=== PATIENT | male | born 1960 | race Caucasian/White ===

== ENCOUNTER → 2021-05-09 | Outpatient (CLI) | payer BC ==
--- NOTE | 2021-05-09 20:04 | CT ---
EXAMINATION TYPE: CT urogram wo/w con DATE OF EXAM: 05/09/2021 COMPARISON: None HISTORY: hematuria CT DLP: 1259.5 mGycm, Automated Exposure Control for Dose Reduction was Utilized. CONTRAST: CT scan of the abdomen and pelvis is performed with oral and without and with IV Contrast, patient in jected with 100 mL of Isovue 300. FINDINGS: Urinary bladder shows on postcontrast images and abnormal soft tissue mass near the level of the trigone on the right measuring approximately 2.4 cm in AP dimension by 18 mm in transverse dim ension by 14 mm in cephalad to caudal dimension. Thickening of bladder wall could be due to chronic o utlet obstruction, correlate to exclude cystitis, findings could also be due to lack of distention. LUNG BASES: No significant abnormality is appreciated. LIVER/GB: No significant abnormality is appreciated. PANCREAS: No significant abnormality is seen. SPLEEN: No significant abnormality is seen. ADRENALS: No significant abnormality is seen. KIDNEYS: There is no evident stone or hydronephrosis. No evident renal mass. There are parapelvic cys ts associated with the left kidney. Ureters show normal course and caliber, no calcification. BOWEL: No significant abnormality is seen. PROSTATE/SEMINAL VESICLES: Prostate appears enlarged and shows associated calcification. There is an inferior impression on the urinary bladder due to the enlarged prostate. LYMPH NODES: No greater than 1cm abdominal or pelvic lymph nodes are appreciated. OSSEOUS STRUCTURES: There is a spinal curvature present. Degenerative disc changes are present in the lumbar spine. Minimal anterolisthesis grade 1 L4-5. Facet arthropathy present at the lower lumbar sp ine. 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
== END | disposition home or self-care (01) ==
LOC: RADCTMAIN 15:56
PROVIDERS: ATTEND Urology
DX: R31.9 Hematuria, unspecified (principal)
CPT/HCPCS: 74178; 74400; Q9967

== ENCOUNTER → 2022-10-18 | Outpatient (CLI) | payer BC ==
--- NOTE | 2022-10-18 13:34 | US ---
EXAMINATION TYPE: US kidneys/renal and bladder DATE OF EXAM: 10/18/2022 COMPARISON: CT urogram 05/09/2021 CLINICAL HISTORY: C67.9 bladder ca. EXAM MEASUREMENTS: Right Kidney: 10.9 x 4.4 x 5.7 cm Left Kidney: 10.6 x 5.9 x 5.0 cm Right Kidney: no hydronephrosis or masses seen Left Kidney: echogenic focus measuring 3mm in the cortex, parapelvic cyst measuring 1.2 x 1.0 x 1.2c m Bladder: possible dependant sludge, small diverticulum No evidence for vascular mass identified. Bilateral Jets seen: Yes IMPRESSION: 1. No evidence of bladder mass there is suspected layering sludge correlate with urinalysis. 2. No evidence of obstructive uropathy or renal calculus. Findings similar to CT urogram 05/09/2021.
== END | disposition home or self-care (01) ==
LOC: RADUSWWP 12:43
PROVIDERS: ATTEND Urology
DX: C67.9 Malignant neoplasm of bladder, unspecified (principal)
CPT/HCPCS: 76770

== ENCOUNTER → 2022-12-19 | Outpatient (CLI) | payer OTHER, BC ==
[2022-12-19 15:03] LABS: HCT 41.7 % (39.6-50.0); HGB 13.6 g/dL (13.0-17.0); MCH 30.1 pg (27.0-32.0); MCHC 32.6 g/dL (32.0-37.0); MCV 92.3 fL (80.0-97.0); Mean Platelet Volume 9.6 fL (9.5-12.2); NRBC Per 100 WBC 0 /100 WBCS (0.0-0.0); Platelet Count 288 X 10*3/uL (140-440); RBC 4.52 X 10*6/uL (4.40-5.60); RDW 13.3 % (11.5-14.5)
== END | disposition home or self-care (01) ==
LOC: LABPAT 09:12
PROVIDERS: ATTEND Surgery
DX: Z01.818 Encounter for other preprocedural examination (principal); K40.90 Unilateral inguinal hernia, without obstruction or gangrene, not specified as recurrent
CPT/HCPCS: 85027; 86850; 86900; 86901; 93005

== ENCOUNTER → 2023-06-24 | Outpatient (CLI) | payer BC ==
--- NOTE | 2023-06-25 19:16 | CT ---
EXAMINATION TYPE: CT abdomen pelvis w con DATE OF EXAM: 06/24/2023 COMPARISON: 05/09/2021 HISTORY: 62-year-old male C67.1, bladder ca TECHNIQUE: Contiguous axial scanning of the abdomen and pelvis following administration of 100 ml Iso rey 300 IV contrast. Delayed images through the kidneys and coronal/sagittal reconstructions perform ed. CT DLP: 586.7 mGycm Automated exposure control for dose reduction was used. FINDINGS: The heart is normal size without pericardial effusion. Lung bases clear without pleural eff usion. No focal liver lesion or biliary ductal dilatation. Portal venous system is patent. Gallbladder, adrenal glands, right kidney, spleen, and pancreas are within normal limits. Small parapelvic cysts within the left kidney measuring up to 1.5 cm. Symmetric uptake and excretion of contrast from both kidneys. No dilated small bowel, free fluid, or free air. No mesenteric or retroperitoneal lymphadenopathy. Oral contrast has progressed through the lower descending colon. Moderate stool burden. Minimal proxi mal sigmoid diverticulosis. No pericolonic inflammatory change. Bladder is urine distended. Prostate gland is enlarged measuring 5.2 cm wide. There is some focal irregularity along the right posterior bladder wall suggesting some bladder wall trabeculations. No obvious mural based mass is identified along the bladder wall with particular attention to the adj acent region at the site of previous mass seen on 05/09/2021. No abnormal fluid collection in the pelv is or pelvic lymphadenopathy. Bones: Mild degenerative change of the hips. Hypertrophic facet arthropathy lower lumbar spine. Degen erative grade 1 spondylolisthesis L1-L5 levels. No osseous destructive process seen. IMPRESSION: 1. SIMILAR MILD BLADDER WALL TRABECULATION TOWARDS THE RIGHT POSTERIOR ASPECT. THE PREVIOUS ADJACENT MURAL NODULE SEEN ON THE CT OF 05/09/2021 IS NO LONGER IDENTIFIED. 2. SIMILAR SMALL PARAPELVIC CYSTS IN THE LEFT KIDNEY. NO SUSPICIOUS RENAL LESION, OBVIOUS RECURRENT B LADDER WALL MASS, OR OTHERWISE ANY EVIDENCE FOR METASTATIC DISEASE TO THE ABDOMEN OR PELVIS. 3. PROSTATOMEGALY OF 5.2 CM WIDE.
== END | disposition home or self-care (01) ==
LOC: RADCTMAIN 16:51
PROVIDERS: ATTEND Urology
DX: C67.1 Malignant neoplasm of dome of bladder (principal); N28.1 Cyst of kidney, acquired; N32.89 Other specified disorders of bladder; N40.0 Benign prostatic hyperplasia without lower urinary tract symptoms
CPT/HCPCS: 74177; Q9967

== ENCOUNTER → 2024-06-18 | Outpatient (CLI) | payer BC ==
--- NOTE | 2024-06-18 20:07 | CT ---
EXAMINATION TYPE: CT abdomen pelvis w con CT DLP: 474.9 mGycm, Automated exposure control for dose reduction was used. DATE OF EXAM: 06/18/2024 6:56 PM COMPARISON: CT abdomen pelvis most recent from CLINICAL INDICATION:Male, 63 years old with history of C67.0 BLADDER CA; bladder ca TECHNIQUE: Axial CT abdomen pelvis w con;Sagittal and coronal reformats were created on a separate w orkstation. Contrast used:100 mL of Isovue 300 with IV Contrast, (none if empty) Oral contrast used: with Oral Contrast (none if empty) FINDINGS: LOWER CHEST: Unremarkable ABDOMEN LIVER: Unremarkable GALLBLADDER AND BILE DUCTS: Unremarkable. PANCREAS: Unremarkable. SPLEEN: Unremarkable. ADRENAL GLANDS: Unremarkable. KIDNEYS AND URETERS: No evidence of hydronephrosis or renal calculus. The ureters are unremarkable. PELVIS BLADDER: Unremarkable REPRODUCTIVE: Unremarkable. ABDOMEN & PELVIS STOMACH AND BOWEL: No evidence of bowel obstruction. PERITONEUM/RETROPERITONEUM: No evidence of pneumoperitoneum or free fluid. VASCULATURE: No evidence of aortic aneurysm. MUSCULOSKELETAL: No acute osseous abnormalities LYMPH NODES: No gross evidence for lymphadenopathy. SOFT TISSUE/ABDOMINAL WALL: Unremarkable IMPRESSION: 1. No acute process noted. 2. No evidence of primary or metastatic bladder cancer appreciated.
== END ==
LOC: RADCTMAIN 16:54
PROVIDERS: ATTEND Urology
DX: C67.1 Malignant neoplasm of dome of bladder (principal)
CPT/HCPCS: 74177; Q9967